=== PATIENT | male | born 1985 | race Caucasian/White ===

== ENCOUNTER 2023-03-27 18:13 | Emergency (ER) | payer OTHER ==
[~2023-03-27] VITALS: Ht 177.8 cm; Wt 81.6 kg
== END 2023-03-27 22:07 | disposition home or self-care (01) ==
LOC: ER 18:13
PROVIDERS: General Practice
DX: G43.809 Other migraine, not intractable, without status migrainosus (principal)

== ENCOUNTER 2025-05-23 09:20 | Outpatient (CLI) | payer OTHER | END 2025-05-23 09:35 | disposition home or self-care (01) | LOC: SONOGRAMA 09:20 | DX: N50.811 Right testicular pain (principal); N50.9 Disorder of male genital organs, unspecified ==